=== PATIENT | female | born 1985 | race Caucasian/White ===

== ENCOUNTER → 2020-04-01 | Outpatient (CLI) | payer BC, SELFPAY | END | disposition home or self-care (01) | PROVIDERS: PCP Family Medicine; Referring Provider Family Medicine; Visit Provider Family Medicine | DX: Z20.828 Contact with and (suspected) exposure to other viral communicable diseases (principal) | CPT/HCPCS: 87635; U0003 ==

== ENCOUNTER → 2022-05-26 | Outpatient (CLI) | payer OTHER, SELFPAY ==
[2022-05-28 22:07] LABS: Chlamydia By Nucleic Acid AMP Negative (Negative)
[2022-05-29 19:10] LABS: Gonococcus By Nucleic Acid AMP Negative (Negative)
[2022-06-01 12:24] LABS: HPV APTIMA, High Risk Negative (Negative)
[2022-06-01 20:30] LABS: HPV Reflexed? YES, CHARGE PATIENT
== END | disposition home or self-care (01) ==
LOC: LABSPEC 16:55
PROVIDERS: PCP Family Medicine; Visit Provider Registered Nurse
DX: Z01.419 Encounter for gynecological examination (general) (routine) without abnormal findings (principal)
CPT/HCPCS: 87491; 87591; 87624; 88175; G0145

== ENCOUNTER → 2023-06-17 | Outpatient (CLI) | payer OTHER, SELFPAY ==
--- NOTE | 2023-06-17 11:32 | US_ITS ---
EXAM: US CHEST CLINICAL INDICATION: mass on base of sternum on Xiphoid process TECHNIQUE: Real-time ultrasound of the chest with image documentation. COMPARISON: No relevant prior studies available. FINDINGS: TISSUES: Normal. No mass or fluid collection. US/Chest IMPRESSION: Negative exam. Electronically Signed: Javy Posey MD at 16:34 EST ,
--- OUTSIDE RECORDS SUMMARY | 2023-06-17 11:54 | XMS RPT_ITS | CCD ---
Author Name Unknown Address [address] [place] [address] Organization [facility] Care Team Providers Care Alcohol [employer]ber Name Role Phone Sulove, Saksham Unavailable Unavailable Sulove, Saksham Unavailable Unavailable Sulove, Saksham Unavailable Unavailable Sulove, Saksham Unavailable Unavailable Sulove, Saksham Unavailable Unavailable Peyman, Tamara Unavailable Unavailable Sulove, Saksham Unavailable Unavailable Sulove, Saksham Unavailable Unavailable Sulove, Saksham Unavailable Unavailable Sulove, Saksham Unavailable Unavailable Peyman, Tamara Unavailable Unavailable Sulove, Saksham Unavailable Unavailable Peyman, Tamara Unavailable Unavailable Peyman, Tamara Unavailable Unavailable Sulove, Saksham Unavailable Unavailable Results Test Name Value Interpretation Reference Range Facil ity Encounters Encounter Date Encounter Type Care Provider Facility Start: 11-26-2017 End: 11-26-2017 Patient encounter Jeimy Zapataove Facility:[facility] Start: 11-10-2017 End: 11-11-2017 Patient encounter Tamara Peyman Facility:[facility] Start: 11-10-2017 End: 11-11-2017 Patient encounter Tamara Peyman Facility:[facility] Start: 11-10-2017 Patient encounter Facil [id number] Start: 11-02-2017 End: 11-02-2017 Patient encounter Tamara Peyman Facility:[facility] Start: 11-01-2017 End: 11-02-2017 Patient encounter Saksham Sulove Facility:[facility] Start: 11-01-2017 Patient encounter Facil [id number] Start: 10-15-2017 End: 10-16-2017 Patient encounter Sakisadora Sulove Facility:[facility] Payers Date Payer Category Payer Private Health Insurance Private Health Insurance [id number] Summary Purpose Family History No Family History Records FoundNo Family History Records FoundNo Family History Records FoundNo Family History Records Found Advance Directives No Advanced Directives Records FoundNo Advanced Directives Records FoundNo Advanced Directives Records FoundNo Advanced Directives Records Found Additional Source Comments INFORMATION SOURCE (unrecogn ized section and content) DATE CREATED AUTHOR AUTHOR'S ORGANIZ ATION 12/03/2017 [facility] DATE CREATED AUTHOR AUTHOR'S ORGANIZ ATION 01/14/2018 [facility] DATE CREATED AUTHOR AUTHOR'S ORGANIZ ATION 03/30/2021 [facility] FOR RECORDS PERTAINING TO PATIENTS WHO ARE OR HAVE BEEN ENROLLED IN A CHEMICAL DEPENDENCY/SUBSTANCEABUSE PROGRAM, SOME INFORMATION MAY BE OMITTED. This clinical summary was aggregated from multiple sources. Caution should be exercised in using it in the provision of clinical care. This summary normalizes information from multiple sources, and as a consequence, information in this document may materially change the coding, format and clinical context of patient data. In addition, data may be omitted in some cases. CLINICAL DECISIONS SHOULD BE BASED ON THE PRIMARY CLINICAL RECORDS. [employer] provides no warranty or guarantee of the accuracy or completeness of information in this document.
== END | disposition home or self-care (01) ==
LOC: US 11:30
PROVIDERS: PCP Family Medicine; Referring Provider Family Medicine; Visit Provider Family Medicine
DX: R22.2 Localized swelling, mass and lump, trunk (principal)
CPT/HCPCS: 76604

== ENCOUNTER → 2023-07-08 | Outpatient (CLI) | payer SELFPAY, OTHER ==
--- NOTE | 2023-07-08 16:21 | MRI_ITS ---
EXAM: MR CHEST WITHOUT INTRAVENOUS CONTRAST CLINICAL INDICATION: mass on sternum / zyphoid process area TECHNIQUE: Multiplanar magnetic resonance images of the chest without intravenous contrast. COMPARISON: No relevant prior studies available. FINDINGS: LUNGS: Unremarkable. No mass. No consolidation. PLEURAL SPACE: Unremarkable. No pneumothorax. No significant effusion. HEART: Unremarkable. No cardiomegaly. No significant pericardial effusion. MEDIASTINUM: Unremarkable. No mass. BONES/JOINTS: Xiphoid process angulates somewhat anteriorly. No acute fracture. No dislocation. SOFT TISSUES: Unremarkable. VASCULATURE: Unremarkable. No thoracic aortic aneurysm. LYMPH NODES: Unremarkable. No enlarged lymph nodes. MRI/Chest without Contrast IMPRESSION: 1. Xiphoid process angulates somewhat anteriorly. No mass identified. 2. No sternal mass identified. Electronically Signed: Denis Harvey MD at 23:03 [facility] ,
== END | disposition home or self-care (01) ==
PROVIDERS: PCP Family Medicine; Referring Provider Family Medicine; Visit Provider Family Medicine
DX: R22.2 Localized swelling, mass and lump, trunk (principal)
CPT/HCPCS: 71550